=== PATIENT | female | born 1980 | race Hispanic/Latino ===

== ENCOUNTER 2021-07-31 13:55 | Emergency (ER) | payer MEDICAID, OTHER ==
[~2021-07-31] VITALS: Ht 154.9 cm; Wt 59.9 kg
[2021-07-31 14:01] VITALS: BP 107/56
[2021-07-31] MEDS ORDERED: ONDANSETRON 4MG INJ IVP ONE (14:30)
[2021-07-31] MEDS ORDERED: MORPHINE 4 MG SYG IV ONE (14:30)
[2021-07-31] MEDS ORDERED: 0.9%NACL 1000ML 1,000 ML IV ONE (14:30)
[2021-07-31 14:36] LABS: BASOPHILS % (AUTO) 0.7 % (0.0-5.0); EOSINOPHILS % (AUTO) 1.4 % (0.0-8.0); HEMATOCRIT 31.6 % (36-48); LYMPHOCYTES % (AUTO) 27.3 % (21.0-51.0); MEAN CORPUSCULAR HEMOGLOBIN 24.9 pg (27.0-33.0); MEAN CORPUSCULAR HGB CONC 30.4 g/dL (32.0-36.0); MEAN CORPUSCULAR VOLUME 81.9 fL (79-99); MONOCYTES % (AUTO) 7.1 % (3.0-13.0); NEUTROPHILS % (AUTO) 63.3 % (40.0-77.0); PLATELET COUNT (AUTO) 358 K/uL (130-400); RED BLOOD CELL COUNT(AUTO) 3.86 MIL/uL (4.00-5.50); RED CELL DISTRIBUTION WIDTH 17.5 % (11.0-15.5); WHITE BLOOD COUNT (AUTO) 5.6 K/uL (4.8-10.8)
[2021-07-31 14:38] LABS: APPEARANCE,URINE Clear (CLEAR); BILIRUBIN,URINE Negative (NEGATIVE); COLOR,URINE Yellow (YELLOW); GLUCOSE, URINE (UA) Negative (NEGATIVE); KETONES,URINE Negative (NEGATIVE); LEUKOCYTE ESTERASE ,URINE Negative (NEGATIVE); NITRATE,URINE Negative (NEGATIVE); OCCULT BLOOD,URINE Negative (NEGATIVE); PH,URINE 6.5 (5.0-8.0); PROTEIN,URINE Negative (NEGATIVE)
[2021-07-31 14:42] LABS: HCG,QUAL RESULT NEGATIVE (NEGATIVE)
[2021-07-31 14:45] LABS: CREATININE 0.6 mg/dL (0.5-1.5); POTASSIUM 3.6 mmol/L (3.5-5.1)
[2021-07-31 14:50] LABS: ALBUMIN 3.7 g/dL (3.5-5.0); BILIRUBIN,TOTAL 0.2 mg/dL (0.2-1.0); TOTAL PROTEIN, SERUM 7.7 g/dL (6.0-8.3)
[2021-07-31] MEDS ORDERED: IOHEXOL-350 75 ML VIAL IV ONE (15:04)
== END 2021-07-31 16:40 | disposition home or self-care (01) ==
LOC: EDH 13:55
DX: R10.2 Pelvic and perineal pain (principal); M54.50 Low back pain, unspecified
CPT/HCPCS: 36415; 74177; 76856; 80053; 81003; 81025; 85025; 96361; 96374; 96375; 99285; J2270; J2405; J7030; Q9967